=== PATIENT | male | born 1990 | race African-American/Black ===

== ENCOUNTER 2023-02-24 09:57 | Observation (INO) | payer MEDICAID, SELFPAY ==
[2023-02-24 09:58] VITALS: BP 123/81; PULSE 105; RESP 20; TEMP 36.3; O2SAT 99; BMI 34.9
--- NOTE | 2023-02-24 10:26 | EX.ED.SAOD ---
HPI History of Present Illness Chief Complaint: Substance Abuse Informant: patient Onset/Context/Timing Onset: - (Years.) Context: Gradual Onset Timing: Continuous Current Severity: Mild Maximum Severity: Mild Narrative Narrative: 32-year-old male no seen past medical history other than a history of drug abuse. States he snorts heroin and fentanyl. Denies any IV drug abuse. Denies any recent illness. Last use was early yesterday morning. Last detox was about a year ago. He denies any recent illness. Prior similar symptoms: Yes Recent Illness/Hospitalization: No PFSH PFSH Home Medications NK 02/24/23 [History Last Taken Unknown] Allergy/AdvReac Type Severity Reaction Status Date / Time No Known Allergies Allergy Verified 02/24/23 11:04 Family History adopted Surgical History (Updated 02/24/23 @ 11:02 by Madalyn Bryan) H/O wisdom tooth extraction Social History (Updated 02/24/23 @ 11:02 by Madalyn Bryan) household members: significant other housing: homeless current occupational status: unemployed Smoking Status: Never smoker ROS ROS ED ROS Narrative Denies recent illness. Review of Systems ROS Unobtainable: Denies due to encephalopathy Constitutional Constitutional ED: Denies chills or fever(s) Eyes Eyes: Denies blurry vision ENT ENT ED: Denies ear pain Cardiovascular Cardiovascular: Denies chest pain Respiratory/Chest Respiratory/Chest: Denies cough or dyspnea Gastrointestinal Gastrointestinal: Denies abdominal pain Genitourinary Genitourinary ED: Denies dysuria Musculoskeletal Musculoskeletal: Denies arthralgias Integumentary Denies abscess Neurologic Neurologic: Denies headache(s) Psychiatric Psychiatric: Denies anxiety Endocrine Endocrinology: Denies cold intolerance Hematologic/Lymphatic Hematologic/Lymphatic: Denies easy bleeding, easy bruising or lymphadenopathy Allergic/Immunologic Allergic/Immunologic ED: Denies mouth swelling, tongue swelling or urticaria EXAM Physical Exam Narrative Exam Narrative: 32-year-old male no acute distress. Vital signs stable afebrile. HEENT exam unremarkable. Moist mucous membranes. Neck nontender. No JVD. Lungs clear to auscultation bilaterally. Heart regular rhythm rate about 100 no murmur. Chest wall and ribs nontender. Abdomen soft nontender. Moving all 4 extremities. Nontender. No rashes. No track prakash. 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 Normal range of motion. Back nontender. Neurologically is awake and alert. Answering questions and following commands. He is cooperative. Const Vital Signs: 02/24/23 09:58 Temperature 97.4 F L Temperature Source Temporal Pulse Rate 105 H Respiratory Rate 20 H Blood Pressure 123/81 H Blood Pressure Mean 95 Pulse Ox 99 Oxygen Delivery Method Room Air Positive well nourished and well developed; Negative for cachectic, contractures or unkempt General Appearance ED: well developed and NAD; Negative for unkempt, cachectic, contractures or pallor Nutritional Appearance: Negative for cachectic HEENT Reports moist mucous membranes; Denies dry mucous membranes atraumatic; Negative for trauma or tenderness Mouth ED: No dry mucous membranes Mouth: No dry mucous membranes Eyes PERRL and EOMs intact bilaterally General Eye ED: Negative for pale conjunctiva or scleral icterus Neck no lymphadenopathy, supple and no JVD Thyroid: Negative for tender or other Lymph Lymphatic: no lymphadenopathy noted; Negative for lymphadenopathy or other Chest Wall inspection of chest normal Chest: Negative for other Resp normal respiratory effort and clear to auscultation bilaterally Effort and Inspection: Negative for retractions Auscultation: Negative for rales, rhonchi or wheezes Cardio regular rhythm, S1 normal heart sound, S2 normal heart sound and no murmurs Rate: Negative for bradycardia or tachycardic Rhythm: Negative for abnormal rhythm Bruits: Negative for other GI soft to palpation, non-tender, non-distended and no masses Inspection: Negative for abdominal distention Palpation: Negative for tender or guarding Back/Spine no CVA tenderness General Back: Negative for CVA tenderness Cervical Spine: Negative for cervical spine tenderness Thoracic Spine / Upper Back: Negative for thoracic spinal tenderness Lumbar Spine / Lower Back: Negative for lumbar spinal tenderness Coccyx: Negative for swelling Extremity Extremity Narrative: Nontender. No edema. No track prakash. General Extremety ED: Negative for edema or tenderness General Extremity: Negative for edema Neuro oriented x3 and CN's II-XII intact bilaterally Sensorium / Orientation: alert, oriented to person, oriented to place and oriented to time; Negative for confused, lethargic or stuporous Speech: speech normal Motor Exam: strength 5/5 throughout Psych mental status grossly normal and thought process normal Appearance: Negative for unkempt Skin General Skin Exam: Negative for jaundice or pallor Lesions: no lesions Rashes: no rashes Trauma: Negative for abrasion or laceration MDM MDM MDM Narrative Medical decision making narrative: [id number] male. History of drug abuse for years. Requesting detox. Exam is benign. He is medically cleared. Hospitalist on page for admission. Screening labs being obtained. History & Record Review Discussion w/independent historian: Patient Additional record(s) reviewed:: Prior inpatient record, Prior outpatient record, Prior ED visit and Prior labs Lab Data Attestation: I reviewed the patient's lab results. Lab results narrative: CBC normal. White count of 6. H&H 16 and 47. Platelets 366. Labs: Laboratory Results - last 24 hr 02/24/23 02/24/23 10:42 10:45 WBC 6.8 RBC 5.48 Hgb 16.0 Hct 47.7 MCV 87.0 MCH 29.2 MCHC 33.5 RDW Std Deviation 39.5 RDW Coeff of Walker 12.3 Plt Count 366 MPV 10.0 Immature Gran % (Auto) 0.300 Neut % (Auto) 66.6 Lymph % (Auto) 26.7 [place] % (Auto) 4.7 Eos % (Auto) 1.0 Baso % (Auto) 0.7 Absolute Neuts (auto) 4.5 Absolute Lymphs (auto) 1.80 Nucleated RBC % 0 Ur Drug Screen Comment Discharge Plan Dx/Rx/DC Orders Clinical Impression: Admitted to substance misuse detoxification center, Opioid abuse Disposition Disposition: Acute Care Hospital [facility]
--- NOTE | 2023-02-24 10:36 | NURSING ---
DR MCKENZIE TELLEZ
[2023-02-24 11:03] LABS: Absolute Neutrophil Count 4.5 X10^3/uL (2.0-7.7); Basophil# 0.05 X10^3/uL; Basophil% 0.7 % (0-1); Eosinophil# 0.07 X10^3/uL; Hematocrit 47.7 % (40-54); Lymphocyte % 26.7 % (19-41); Mean Corp Hgb Conc 33.5 g/dL (32-36); Mean Corpuscular Hgb 29.2 pg (27.0-32.0); Monocyte# 0.32 X10^3/uL; Monocyte% 4.7 % (0-10); NRBC Flagged by Analyzer 0 % (0-5); Neutrophil # 4.49 X10^3/uL (2.7-7.7); Neutrophil % 66.6 % (47-70); Platelet Count 366 K/mm3 (150-450); RBC Distribution Width CV 12.3 % (11.6-14.6); RBC Distribution Width SD 39.5 fl (35.1-43.9); Red Blood Count 5.48 M/mm3 (4.6-6.2); White Blood Count 6.8 K/mm3 (4.4-11.0)
[2023-02-24 11:14] LABS: ALB/GLOB Ratio 0.9 RATIO (0.9-2.4); AST(SGOT) 26 U/L (15-37); Alanine Aminotransfer ALT/SGPT 32 U/L (16-61); Albumin, Serum 3.8 g/dL (3.2-5.0); Alkaline Phosphatase 100 U/L (45-117); Anion Gap 6 (5-15); BUN 8 mg/dL (7-18); BUN/Creat Ratio 7.8 RATIO (10-20); Chloride 104 mmol/L (98-107); Creatinine, Serum 1.02 mg/dL (0.70-1.30); EST Glomerular Filtration Rate 90 mL/min (>60); Est Glom Filt Rate - Afr Amer 109 mL/min (>60); Estimated Creatinine Clearance 115.17 ml/min; Globulin 4.4 g/dL (2.2-4.2); Glucose 119 mg/dL (74-106); Potassium 3.7 mmol/L (3.5-5.1); Protein, Total 8.2 g/dL (6.4-8.2); Sodium Level 137 mmol/L (136-145)
--- NOTE | 2023-02-24 11:24 | NURSING ---
MED SURG [facility] DRUG ABUSE, DETOX
[2023-02-24 11:25] LABS: Alcohol, Blood (Medical)-Serum < 3.0 mg/dL
[2023-02-24 11:51] LABS: Amphetamine Urine VISTA NEGATIVE (<1000 ng/mL); Barbiturate Urine VISTA NEGATIVE (< 200 ng/mL); Benzodiazepine Urine VISTA NEGATIVE (< 200 ng/mL); Cocaine Urine VISTA NEGATIVE (< 300 ng/mL); Ecstacy Urine VISTA NEGATIVE (< 500 ng/mL); Methadone Urine VISTA NEGATIVE (< 300 ng/mL); PCP Urine VISTA NEGATIVE (< 25 ng/mL); THC Urine VISTA POSITIVE (< 50 ng/mL); Vista UDS pH Range 7
[2023-02-24 11:57] VITALS: PULSE 90; RESP 14; O2SAT 98
[2023-02-24 12:16] VITALS: BMI 34.0
[2023-02-24 12:21] VITALS: BP 126/70; PULSE 67; RESP 18; TEMP 36.8; O2SAT 97
--- NOTE | 2023-02-24 12:40 | PCM.HP.STD ---
HPI - General General Date of Admission: 02/24/23 Date of Service: 02/24/23 Chief Complaint: Desire for opiate detoxification HPI Narrative TEODORO LEIVA, is a 32 M who presents to the ER at [facility] requesting services for opiate detox, patient uses fentanyl and heroin, he snorts it, he never injects it, he does not admit to using any other drugs. Patient does not drink alcohol. Patient's last use of opiates was yesterday. Patient relates to no anxiety, muscle pain, or nausea and vomiting. Patient's tox screen was positive for cannabinoids. Patient's CBC and CHEM panel was unremarkable. Patient will be admitted to [place] [id number], orders were entered using the opiate detox order set, patient will be seen by addiction vp digital marketing social media and crm. [facility] Medical History (Updated 02/24/23 @ 12:44 by Anju Simons) Substance abuse Home Medications NK 02/24/23 [History Last Taken Unknown] Allergy/AdvReac Type Severity Reaction Status Date / Time No Known Allergies Allergy Verified 02/24/23 11:04 Family History adopted Surgical History (Updated 02/24/23 @ 11:02 by Madalyn Bryan) H/O wisdom tooth extraction Social History (Updated 02/24/23 @ 11:02 by Madalyn Bryan) household members: significant other housing: homeless current occupational status: unemployed Smoking Status: Never smoker ROS Constitutional Constitutional: Denies anorexia, change in weight, chills, fatigue, fever(s), malaise, night sweats or weakness Eyes Eyes: Denies blurry vision, change in vision, discharge from eye(s) or eye pain Cardiovascular Cardiovascular: Denies chest pain, claudication, edema or palpitations Respiratory/Chest Respiratory/Chest: Denies cough, hemoptysis, shortness of breath at rest or shortness of breath with exertion Gastrointestinal Gastrointestinal: Denies abdominal pain, constipation, diarrhea, hematemesis, hematochezia, melena, nausea or vomiting Genitourinary Genitourinary: Denies dysuria, hematuria, urinary frequency, urinary hesitancy, urinary incontinence or urinary urgency Musculoskeletal Musculoskeletal: Denies back pain, joint pain, joint stiffness, joint swelling, myalgias or neck pain Neurologic Neurologic: Denies abnormal gait, abnormal speech, confusion, disequilibrium, dizziness, focal weakness, headache(s), loss of vision, numbness, other visual disturbances, paresthesias, syncope or tingling Psychiatric Psychiatric: Denies anxiety, cognitive impairment, depression, irritability, mood swings or suicidal ideation Endocrine Endocrinology: Denies change in body appearance, cold intolerance, excessive sweating, heat intolerance, polydipsia or polyuria Hematologic/Lymphatic Hematologic/Lymphatic: Denies none, anemia, easy bleeding, easy bruising or lymphadenopathy Allergic/Immunologic Allergic/Immunologic: Denies rhinitis, urticaria, eczemia or asthma Vital Signs Vital Signs Vital Signs: 02/24/23 09:58 02/24/23 11:57 02/24/23 12:21 Temperature 97.4 F L 98.3 F Temperature Source Temporal Oral Pulse Rate 105 H 90 67 Respiratory Rate 20 H 14 18 Blood Pressure 123/81 H 126/70 H Blood Pressure Mean 95 88 Blood Pressure Source Monitor Blood Pressure Position Semi-Fowlers Blood Pressure Location Right Arm Pulse Ox 99 98 97 Oxygen Delivery Method Room Air Room Air Weight Weight: 113.8 kg Body Mass Index (BMI) 34.0 Physical Exam Const alert, oriented x3, no apparent distress, average body habitus and healthy appearing General Appearance: cooperative, well kempt and well developed Orientation / Consciousness: awake, oriented to person, oriented to place and oriented to time HEENT normocephalic, head/scalp atraumatic, hearing grossly normal bilaterally and moist oral mucous membranes Eyes PERRL, EOMs intact bilaterally and conjunctivae normal Neck supple, no JVD, thyroid normal and no carotid bruits General: trachea midline Resp normal respiratory effort, no retractions, no use of accessory muscles and clear to auscultation bilaterally Auscultation: Negative for rales, rhonchi or wheezes Cardio regular rate, regular rhythm, S1 normal heart sound, S2 normal heart sound, no murmurs, no rub and no gallops GI normal to inspection, nondistended, normoactive bowel sounds, soft to palpation, non-tender and non-distended Extremity no clubbing, cyanosis or edema Skin no rashes or lesions noted General Skin Exam: no breakdown Neuro oriented x3, CN's II-XII intact bilaterally, moves all extremities, no focal motor deficits and no sensory deficits noted Sensorium / Orientation: awake, alert, oriented to person, oriented to place and oriented to time Speech: speech normal Psych affect normal Results Lab / Micro Data 02/24/23 10:42 02/24/23 10:42 Labs: Laboratory Results - last 24 hr 02/24/23 10:42: WBC 6.8, RBC 5.48, Hgb 16.0, Hct 47.7, MCV 87.0, MCH 29.2, MCHC 33.5, RDW Std Deviation 39.5, RDW Coeff of Walker 12.3, Plt Count 366, MPV 10.0, Immature Gran % (Auto) 0.300, Neut % (Auto) 66.6, Lymph % (Auto) 26.7, [place] % (Auto) 4.7, Eos % (Auto) 1.0, Baso % (Auto) 0.7, Absolute Neuts (auto) 4.5, Absolute Lymphs (auto) 1.80, Nucleated RBC % 0, Sodium 137, Potassium 3.7, Chloride 104, Carbon Dioxide 27.0, Anion Gap 6, BUN 8, Creatinine 1.02, Estim Creat Clear Calc 115.17, Est GFR (MDRD) Af Amer 109, Est GFR (MDRD) Non-Af 90, BUN/Creatinine Ratio 7.8 L, Glucose 119 H, Calcium 9.0, Total Bilirubin 0.40, AST 26, ALT 32, Alkaline Phosphatase 100, Total Protein 8.2, Albumin 3.8, Globulin 4.4 H, Albumin/Globulin Ratio 0.9, Ethyl Alcohol < 3.0 02/24/23 10:45: Urine Opiates Screen NEGATIVE, Urine Methadone Screen NEGATIVE, Ur Barbiturates Screen NEGATIVE, Ur Phencyclidine Scrn NEGATIVE, Ur Amphetamines Screen NEGATIVE, MDMA (Ecstasy) Screen NEGATIVE, U Benzodiazepines Scrn NEGATIVE, Urine Cocaine Screen NEGATIVE, U Cannabinoids Screen POSITIVE H, Ur Drug Screen Comment Assessment & Plan Assessment/Plan (1) Admitted to substance misuse detoxification center: PLAN: Plan 1. Impending opiate withdrawal-patient will be admitted to [facility] 3, orders were entered using the opiate detox order set, he will be seen by addiction vp digital marketing social media and crm. #2 chronic illicit narcotic usage-complicates care, medical course, recovery, and prognosis Total clinical time spent by myself addressing the patient's medical issues, reviewing all of his data, and collaborating with patient's care team: 55 minutes Charges/Coding Visit Charges Inpatient E&M: 84562 Init Hosp L2
[2023-02-24] MEDS: Buprenorphine HCl 2 MG TAB.SUBL 4 MG SL ×2 (15:59→22:07)
[2023-02-24] MEDS: hydrOXYzine PAM 25 MG Capsule 50 MG PO (18:34)
[2023-02-24] MEDS: Dicyclomine 10 MG Capsule 20 MG PO (18:34)
[2023-02-24] MEDS: Ibuprofen 600 MG Tablet PO (18:34)
[2023-02-24 22:00] VITALS: BP 121/80; PULSE 75; RESP 16; TEMP 36.9; O2SAT 99
[2023-02-24] MEDS: traZODone 100 MG Tablet PO (22:07)
[2023-02-25 00:08] VITALS: BP 114/73; PULSE 44; RESP 18; TEMP 36.4; O2SAT 100
--- NOTE | 2023-02-25 00:20 | PCA ---
i myself was sitting at the nurses station across the [address] from pt room, i heard 3 loud bangs and went into pt room found pt on the floor in the bathroom, nurse came in to asses
--- NOTE | 2023-02-25 01:07 | PCM.HOSP.N ---
Hospitalist Note Notified by nursing that the patient fell and hit his head. I went to evaluate the patient and inquired about the fall. He states that he hit his head but does not really wear. States that he just felt unsteady and then bumped his head on the wall. He denies falling and hitting his head on the floor. States that he feels fine and does not want any additional workup. I told him could be something more severe such as a brain bleed. He expressed understanding but does not want any additional testing. Per the patient's description it seems like this may be more of a minor injury. Patient is coherent enough to understand the risks and if this were something more serious but it seems unlikely that that is the case.
[2023-02-25 01:12] VITALS: BP 113/73; PULSE 62; RESP 18; TEMP 36.6; O2SAT 100
[2023-02-25 06:41] VITALS: BP 119/57; PULSE 57; RESP 16; TEMP 37.1; O2SAT 96
--- NOTE | 2023-02-25 07:49 | PCM.HOSP.N ---
Hospitalist Note Patient has elected to leave AGAINST MEDICAL ADVICE.
--- NOTE | 2023-02-25 08:04 | NURSING ---
[facility] TO [facility]- PAPER SIGNED AND DR SINGER NOTIFIED-
--- NOTE | 2023-02-25 08:09 | NURSING ---
pt left at 0803
== END 2023-02-25 08:03 | disposition left against medical advice (07) ==
LOC: ED 10:53 → MS3 11:47
PROVIDERS: Admitting Provider Internal Medicine; Emergency Provider Emergency Medicine; Visit Provider Internal Medicine
DX: F11.13 Opioid abuse with withdrawal (principal); Z59.00 Homelessness unspecified; Z53.29 Procedure and treatment not carried out because of patient's decision for other reasons
CPT/HCPCS: 80053; 80307; 82077; 85025; 99221; 99284; A4216; G0378

== ENCOUNTER 2023-08-03 12:06 | Inpatient (IN) | payer MEDICAID, SELFPAY ==
[2023-08-03 12:07] VITALS: BP 127/83; PULSE 72; RESP 19; TEMP 36.4; O2SAT 98; BMI 31.3
[2023-08-03 13:10] LABS: Absolute Lymphocyte Count 1.35 X10^3/uL (0.83-4.51); Absolute Neutrophil Count 6.6 X10^3/uL (2.0-7.7); Basophil# 0.07 X10^3/uL; Basophil% 0.8 % (0-1); Eosinophil# 0.02 X10^3/uL; Eosinophils% 0.2 % (0-5); Hematocrit 44.5 % (40-54); Hemoglobin 15.1 g/dL (13.0-16.5); Lymphocyte # 1.35 X10^3/ul (0.83-4.51); Mean Corp Hgb Conc 33.9 g/dL (32-36); Mean Corpuscular Hgb 29.4 pg (27.0-32.0); Mean Corpuscular Volume 86.6 fL (80-94); Mean Platelet Vol. 9.7 fl (6.2-12.0); Monocyte# 0.34 X10^3/uL; NRBC Flagged by Analyzer 0 % (0-5); Neutrophil # 6.63 X10^3/uL (2.7-7.7); Neutrophil % 78.5 % (47-70); Platelet Count 344 K/mm3 (150-450); RBC Distribution Width CV 12.5 % (11.6-14.6); RBC Distribution Width SD 39.6 fl (35.1-43.9); Red Blood Count 5.14 M/mm3 (4.6-6.2); White Blood Count 8.5 K/mm3 (4.4-11.0)
[2023-08-03 13:20] LABS: Amphetamine Urine VISTA POSITIVE (<1000 ng/mL); Barbiturate Urine VISTA NEGATIVE (< 200 ng/mL); Benzodiazepine Urine VISTA NEGATIVE (< 200 ng/mL); Cocaine Urine VISTA NEGATIVE (< 300 ng/mL); Ecstacy Urine VISTA NEGATIVE (< 500 ng/mL); Methadone Urine VISTA NEGATIVE (< 300 ng/mL); PCP Urine VISTA NEGATIVE (< 25 ng/mL); THC Urine VISTA POSITIVE (< 50 ng/mL); Vista UDS pH Range 5
[2023-08-03 13:24] LABS: Anion Gap 7 (5-15); BUN 5 mg/dL (7-18); BUN/Creat Ratio 5.4 RATIO (10-20); Calcium,Total 9.1 mg/dL (8.5-10.1); Chloride 107 mmol/L (98-107); Creatinine, Serum 0.92 mg/dL (0.70-1.30); EST Glomerular Filtration Rate 101 mL/min (>60); Est Glom Filt Rate - Afr Amer 122 mL/min (>60); Estimated Creatinine Clearance 144.31 ml/min; Glucose 115 mg/dL (74-106); Potassium 3.5 mmol/L (3.5-5.1); Sodium Level 139 mmol/L (136-145)
[2023-08-03 13:25] LABS: Alcohol, Blood (Medical)-Serum < 3.0 mg/dL
--- NOTE | 2023-08-03 13:58 | EDS_ITS ---
HPI History of Present Illness Chief Complaint: Substance Abuse Narrative Narrative: 33-year-old male presenting for opioid detox. He states he uses fentanyl. He only snorts it. He does not inject. He states he has used other drugs but he is not addicted to them. He states he feels like he is withdrawing. Last use was Tuesday. [facility] Medical History Substance abuse Home Medications NK 02/24/23 [History Last Taken Unknown] Allergy/AdvReac Type Severity Reaction Status Date / Time No Known Allergies Allergy Verified 02/24/23 11:04 Surgical History H/O wisdom tooth extraction Social History household members: significant other housing: homeless current occupational status: unemployed Smoking Status: Never smoker ROS ROS ED Constitutional Constitutional ED: Denies chills, fever(s) or sweats Eyes Eyes: Denies blurry vision or change in vision ENT ENT ED: Denies ear pain or sore throat Cardiovascular Cardiovascular: Denies chest pain, palpitations or racing heartbeat Respiratory/Chest Respiratory/Chest: Denies cough, dyspnea or sputum Gastrointestinal Gastrointestinal: Denies abdominal pain, constipation, diarrhea, nausea or vomiting Genitourinary Genitourinary ED: Denies dysuria, hematuria or urinary frequency Musculoskeletal Musculoskeletal: Denies arthralgias, myalgias or neck pain Integumentary Denies abscess, Abrasions or rash Neurologic Neurologic: Denies headache(s), paresthesias or weakness Psychiatric Psychiatric: Denies anxiety, depression, suicidal ideation or suicidal thoughts Endocrine Endocrinology: Denies polydipsia or polyuria EXAM Physical Exam Const Vital Signs: 08/03/23 12:07 08/03/23 14:06 Temperature 97.6 F L Temperature Source Temporal Pulse Rate 72 78 Respiratory Rate 19 H 16 Blood Pressure 127/83 H 138/76 H Blood Pressure Mean 97 96 Pulse Ox 98 98 Oxygen Delivery Method Room Air Room Air Positive well nourished General Appearance ED: NAD; Negative for pallor HEENT Reports moist mucous membranes atraumatic and trauma Eyes PERRL and EOMs intact bilaterally Resp normal respiratory effort Cardio regular rate and regular rhythm Neuro oriented x3 and CN's II-XII intact bilaterally Sensorium / Orientation: alert Skin General Skin Exam: Negative for jaundice or pallor MDM MDM MDM Narrative Medical decision making narrative: Patient presenting for opioid detox. Appropriate screening lab work was obtained and is within normal. Drug screen positive for cannabinoids and amphetamines. EtOH negative. Will discuss with hospitalist for admission. Impression: 1. Opioid abuse 2. Presentation for opioid detox 3. Amphetamine abuse Lab Data Attestation: I reviewed the patient's lab results. Labs: Laboratory Results - last 24 hr 08/03/23 08/03/23 12:50 13:00 WBC 8.5 RBC 5.14 Hgb 15.1 Hct 44.5 MCV 86.6 MCH 29.4 MCHC 33.9 RDW Std Deviation 39.6 RDW Coeff of Walker 12.5 Plt Count 344 MPV 9.7 Immature Gran % (Auto) 0.500 Neut % (Auto) 78.5 H Lymph % (Auto) 16.0 L [place] % (Auto) 4.0 Eos % (Auto) 0.2 Baso % (Auto) 0.8 Absolute Neuts (auto) 6.6 Absolute Lymphs (auto) 1.35 Nucleated RBC % 0 Sodium 139 Potassium 3.5 Chloride 107 Carbon Dioxide 25.0 Anion Gap 7 BUN 5 L Creatinine 0.92 Estim Creat Clear Calc 144.31 Est GFR (MDRD) Af Amer 122 Est GFR (MDRD) Non-Af 101 BUN/Creatinine Ratio 5.4 L Glucose 115 H Calcium 9.1 Urine Opiates Screen NEGATIVE Urine Methadone Screen NEGATIVE Ur Barbiturates Screen NEGATIVE Ur Phencyclidine Scrn NEGATIVE Ur Amphetamines Screen POSITIVE H MDMA (Ecstasy) Screen NEGATIVE U Benzodiazepines Scrn NEGATIVE Urine Cocaine Screen NEGATIVE U Cannabinoids Screen POSITIVE H Ur Drug Screen Comment Ethyl Alcohol < 3.0 Discharge Plan Triage Chief Complaint: Substance Abuse ED Provider: Mayo Lowry Dx/Rx/DC Orders Prescriptions: No Action NK Primary Care Provider: Care Physician,No Primary Referrals: Care Physician,No Primary [Primary Care Provider] -
--- NOTE | 2023-08-03 14:00 | PCM.HP.STD ---
HPI - General General Date of Admission: 08/03/23 Date of Service: 08/03/23 Chief Complaint: opioid detox HPI Narrative TEODORO LEIVA, is a 33 M with a PMH as outlined who presents via the ED on 08/03/2023 with a complaint of acute opioid withdrawal. He uses heroin and fentanyl and says he usually only snorts it, but doesnt not inject or smoke. His last use was 3 days before admission. He admitted to abdominal cramps, increased sweating and chills. Review of systems was otherwise negative. He was last admitted for acute opioid withdrawal in February 2023. Vitals in the ED were BP of 127/83, NV of 72, RR of 19 and temp of 97.6F. CBC and BMP were largely unremarkable. urine tox was positive for amphetamines and cannabinoids. He is being admitted to be managed for acute opioid withdrawal. [facility] Medical History Substance abuse Home Medications NK 02/24/23 [History Last Taken Unknown] Allergy/AdvReac Type Severity Reaction Status Date / Time No Known Allergies Allergy Verified 02/24/23 11:04 Surgical History H/O wisdom tooth extraction Social History household members: significant other housing: homeless current occupational status: unemployed Smoking Status: Never smoker ROS Constitutional Constitutional: Reports fatigue, malaise and weakness; Denies anorexia, chills or fever(s) Eyes Eyes: Denies change in vision ENT HEENT: Denies dysphagia or sore throat Cardiovascular Cardiovascular: Denies chest pain, edema, orthopnea, palpitations or paroxysmal nocturnal dyspnea Respiratory/Chest Respiratory/Chest: Denies cough, shortness of breath at rest or shortness of breath with exertion Gastrointestinal Gastrointestinal: Denies abdominal pain, constipation, nausea or vomiting Genitourinary Genitourinary: Denies dysuria Musculoskeletal Musculoskeletal: Denies back pain or muscle weakness Neurologic Neurologic: Denies confusion, dizziness, focal weakness or headache(s) Psychiatric Psychiatric: Denies anxiety Vital Signs Vital Signs Vital Signs: 08/03/23 12:07 Temperature 97.6 F L Temperature Source Temporal Pulse Rate 72 Respiratory Rate 19 H Blood Pressure 127/83 H Blood Pressure Mean 97 Pulse Ox 98 Oxygen Delivery Method Room Air Weight Weight: 231 lb 3.2 oz Body Mass Index (BMI) 31.3 Physical Exam Const alert, oriented x3 and no apparent distress General Appearance: cooperative and well developed HEENT normocephalic, head/scalp atraumatic and moist oral mucous membranes Eyes PERRL and EOMs intact bilaterally Neck no lymphadenopathy, supple and no JVD Lymph Lymphatic: no lymphadenopathy noted and no lymphedema noted Resp normal respiratory effort, normal air movement and clear to auscultation bilaterally Cardio regular rate, regular rhythm, S1 normal heart sound, S2 normal heart sound and no murmurs GI normal to inspection, nondistended, normoactive bowel sounds, soft to palpation, non-tender and non-distended Extremity normal capillary refill, no clubbing, cyanosis or edema and no calf tenderness General Extremity: no tenderness to palpation of joints or extremities Skin General Skin Exam: no breakdown Neuro CN's II-XII intact bilaterally, no focal motor deficits, no sensory deficits noted and deep tendon reflexes 2+ bilaterally Motor Exam: strength 5/5 throughout and general weakness Psych thought process normal, cooperative and affect normal Appearance: appropriate Results Lab / Micro Data 08/03/23 13:00 08/03/23 13:00 Labs: Laboratory Results - last 24 hr 08/03/23 12:50: Urine Opiates Screen NEGATIVE, Urine Methadone Screen NEGATIVE, Ur Barbiturates Screen NEGATIVE, Ur Phencyclidine Scrn NEGATIVE, Ur Amphetamines Screen POSITIVE H, MDMA (Ecstasy) Screen NEGATIVE, U Benzodiazepines Scrn NEGATIVE, Urine Cocaine Screen NEGATIVE, U Cannabinoids Screen POSITIVE H, Ur Drug Screen Comment 08/03/23 13:00: WBC 8.5, RBC 5.14, Hgb 15.1, Hct 44.5, MCV 86.6, MCH 29.4, MCHC 33.9, RDW Std Deviation 39.6, RDW Coeff of Walker 12.5, Plt Count 344, MPV 9.7, Immature Gran % (Auto) 0.500, Neut % (Auto) 78.5 H, Lymph % (Auto) 16.0 L, [place] % (Auto) 4.0, Eos % (Auto) 0.2, Baso % (Auto) 0.8, Absolute Neuts (auto) 6.6, Absolute Lymphs (auto) 1.35, Nucleated RBC % 0, Sodium 139, Potassium 3.5, Chloride 107, Carbon Dioxide 25.0, Anion Gap 7, BUN 5 L, Creatinine 0.92, Estim Creat Clear Calc 144.31, Est GFR (MDRD) Af Amer 122, Est GFR (MDRD) Non-Af 101, BUN/Creatinine Ratio 5.4 L, Glucose 115 H, Calcium 9.1, Ethyl Alcohol < 3.0 Assessment & Plan Assessment/Plan (1) Opioid abuse: PLAN: Plan #Acute opioid withdrawal Admit to [facility]. Patient is currently on fentanyl usually snorts but is not smoking or injected. Also uses other drugs like marijuana but says he is not addicted to these drugs. Started on opioid withdrawal protocol with buprenorphine. Adjunctive meds for symptomatic relief. Monitor CIWA score. #Polysubstance abuse: In addition to opioids he also uses amphetamines and marijuana. His urine tox was positive for amphetamines and cannabinoids. Counseled to quit. #DVT prophylaxis: Low risk. Encourage ambulation. Charges/Coding Visit Charges Inpatient E&M: 49043 Init Hosp L3
[2023-08-03 14:06] VITALS: BP 138/76; PULSE 78; RESP 16; O2SAT 98
[2023-08-03 15:37] VITALS: BMI 31.8
[2023-08-03] MEDS: Methocarbamol 750 MG Tablet PO ×2 (15:44→22:09)
[2023-08-03] MEDS: Gabapentin 300 MG Capsule PO (15:44)
[2023-08-03] MEDS: Buprenorphine HCl 2 MG TAB.SUBL SL ×2 (15:44→23:09)
[2023-08-03] MEDS: hydrOXYzine PAM 25 MG Capsule 50 MG PO (17:33)
[2023-08-03] MEDS: cloNIDine HCl 0.1 MG Tablet PO (22:09)
[2023-08-03 22:10] VITALS: BP 132/91; PULSE 68; RESP 17; TEMP 36.5; O2SAT 100
[2023-08-03] MEDS: traZODone 100 MG Tablet PO (23:09)
[2023-08-04 02:00] VITALS: BP 121/68; PULSE 60; RESP 16; TEMP 36.6; O2SAT 99
[2023-08-04] MEDS: hydrOXYzine PAM 25 MG Capsule 50 MG PO ×2 (06:40→15:43)
[2023-08-04] MEDS: Gabapentin 300 MG Capsule PO (06:40)
[2023-08-04] MEDS: Buprenorphine HCl 2 MG TAB.SUBL SL ×3 (06:57→23:22)
[2023-08-04 09:00] VITALS: BP 107/53; PULSE 91; RESP 18; TEMP 36.6; O2SAT 98
--- NOTE | 2023-08-04 11:00 | ADDICTION ---
Met with pt to complete RAMP assessments. Pt reports that he came to detox because he was in active w/draw but is unsure that he wants to completely quit using fentanyl. He reports that it helps him sleep. He reports that he wants to be able to do it occasionally once he detoxes from it. Clinician discussed his risk for relapse and other options for better sleep. Pt reported he was unsure of those options. Clinician gave client a list of resources in case he changes his mind.
[2023-08-04] MEDS: cloNIDine HCl 0.1 MG Tablet PO (12:34)
--- NOTE | 2023-08-04 14:55 | PN.HOSP_ITS ---
Reason for Visit Reason for Visit: Diagnoses Opioid abuse, uncomplicated (08/03/23) Subjective Subjective Feeling better today. Anxious about his wallet which she left at his house. Objective Data Objective Data Vital Signs: Vital Signs Temp Pulse Resp BP Pulse Ox O2 Del Method 36.6 C 91 18 107/53 L 98 Room Air 08/04/23 09:00 08/04/23 09:00 08/04/23 09:00 08/04/23 09:00 08/04/23 09:00 08/04/23 09:00 Oxygen Delivery Method Room Air Weight: 106.7 kg Body Mass Index (BMI) 31.8 Intake & Output: Intake and Output for Last 24 Hours 08/02/23 08/03/23 08/04/23 23:59 23:59 23:59 Intake Total 1240 / 1240 Balance 1240 / 1240 Lab / Micro Data 08/03/23 13:00 08/03/23 13:00 Physical Exam Const alert and no apparent distress HEENT head/scalp atraumatic and moist oral mucous membranes Neuro no focal motor deficits Sensorium / Orientation: awake and alert Psych Mood & Affect: anxious Assessment & Plan Assessment/Plan (1) Opiate withdrawal: PLAN: Plan Acute opiate withdrawal * Patient uses fentanyl and heroin and snorts them. * On buprenorphine. Continue with. Medications to help with other somatic complaints with his withdrawal. * Discussed with addiction medicine. Plan was for the patient to go to a residential program after is completed discharge. However, the patient is expressing a desire to leave before he has completed his treatment because he has to get his wallet. I discussed with addiction medicine and they stated that his wallet is at a trap house if he did not do leave this as well if there is private been picked apart by the people that are also living there. If he does leave AGAINST MEDICAL ADVICE, he would not be able to be as easily enrolled into a residential program and would need to do so on his own. VTE prophylaxis: Low risk not indicated. Charges/Coding Visit Charges Inpatient E&M: 19332 Subs Hosp L2
[2023-08-04 14:59] VITALS: BP 118/74; PULSE 84; RESP 18; TEMP 36.8; O2SAT 99
[2023-08-04 20:00] VITALS: BP 109/66; PULSE 62; RESP 16; TEMP 36.8; O2SAT 98
[2023-08-05 06:48] VITALS: BP 113/72; PULSE 57; RESP 15; TEMP 36.6; O2SAT 98
[2023-08-05] MEDS: Buprenorphine HCl 2 MG TAB.SUBL SL (06:52)
[2023-08-05] MEDS: Gabapentin 300 MG Capsule PO (09:52)
[2023-08-05 10:01] VITALS: BP 123/88; PULSE 71; RESP 18; TEMP 36.8; O2SAT 100
--- NOTE | 2023-08-05 10:33 | NURSING ---
pt left ama
--- NOTE | 2023-08-05 13:35 | DS.PCM_ITS ---
Providers Date of Admission: 08/03/23 Primary Care Physician: Gretta Primary Care Phys Reason For Visit: ACUTE OPIOID WITHDRAWAL Diagnosis Discharge Diagnosis (1) Opiate withdrawal: Status: Acute Code(s): F11.93 - Opioid use, unspecified with withdrawal Plan Acute opiate withdrawal * Patient uses fentanyl and heroin and snorts them. * On buprenorphine. Continue with. Medications to help with other somatic complaints with his withdrawal. * Discussed with addiction medicine. Plan was for the patient to go to a residential program after is completed discharge. However, the patient is expressing a desire to leave before he has completed his treatment because he has to get his wallet. I discussed with addiction medicine and they stated that his wallet is at a trap house if he did not do leave this as well if there is private been picked apart by the people that are also living there. If he does leave AGAINST MEDICAL ADVICE, he would not be able to be as easily enrolled into a residential program and would need to do so on his own. VTE prophylaxis: Low risk not indicated. Medications at Discharge Home Medications NK 02/24/23 Hospital Course Summary of Care Provided Hospital Course: Patient left AGAINST MEDICAL ADVICE before being seen. Patient had previously been saying that he had to go get his wallet at his house. The house was house his other drug addicts. Seem like that was actually more of an excuse than actual legitimate reason. Patient was informed yesterday that if he were to leave AGAINST MEDICAL ADVICE that he would need to initiate his own services for sobriety. Weight / BMI Weight Weight: 106.7 kg Body Mass Index (BMI) 31.8 ABG / Lab / Microbiology Data 08/03/23 13:00 08/03/23 13:00 Meaningful Use Info Meaningful Use Meaningful Use Diagnoses (Choose all that apply): None applicable Ischemic Stroke Statin Dosing Therapy Reference: STATIN DOSE THERAPY REFERENCE: * Patients > 75 years receive moderate or high dose statin therapy. * Patients 75 years or YOUNGER should receive HIGH intensity statin dose unless contraindicated. You will be required to document reason for non-treatment if statin daily dose does not meet guidelines. HIGH DOSE STATIN THERAPY DAILY Atorvastatin > than or = to 40 mg Rosuvastatin > than or = to 20 mg Amlodipine + Atorvastatin > than or = to 2.5/40 mg Ezetimibe + Simvastatin 10/80 mg Simvastatin 80mg Discharge Plan Admission Admit Date/Time: 08/03/23 14:07 Attending Provider: Tian Goetz Primary Care Provider: Care Physician,No Primary Consulting Providers: Ana Beltran Discharge Orders/Prescriptions Prescriptions: No Action NK Referrals / Follow Up: Care Physician,No Primary [Primary Care Provider] - Disposition Disposition (needs filled in before D/C Order can be placed): Against Medical Advice
== END 2023-08-05 10:43 | disposition left against medical advice (07) | DRG 770 ==
LOC: ED 13:14 → MS3 14:40
PROVIDERS: Admitting Provider Student in an Organized Health Care Education/Training Program; Emergency Provider Student in an Organized Health Care Education/Training Program
DX: F11.23 Opioid dependence with withdrawal (principal); F15.10 Other stimulant abuse, uncomplicated; Z59.00 Homelessness unspecified
CPT/HCPCS: 80048; 80307; 80320; 85025; 99283; G0480

== ENCOUNTER 2023-09-29 05:13 | Inpatient (IN) | payer MEDICAID, SELFPAY ==
[2023-09-29] VITALS (7 sets, daily range): BP systolic 93–148; BP diastolic 52–83; PULSE 51–89; RESP 16–18; TEMP 36.4–36.8; O2SAT 96–100; BMI 31.4; BMI 30.8
--- NOTE | 2023-09-29 05:39 | EX.ED.SAOD ---
HPI History of Present Illness Chief Complaint: Substance Abuse Informant: patient Narrative Narrative: 33-year-old healthy male presenting requesting detox from opiates. He also uses methamphetamine but not as often. Opiate use is daily for years. His last use was yesterday. He is starting to feel some withdrawal symptoms including rhinorrhea, anxiety, nausea. Uses methamphetamine on average about once weekly. Denies using any IV drugs, he is snorting fentanyl for the most part. [facility] Medical History Substance abuse Opioid abuse Home Medications ?Medication ?Instructions ?Recorded ?Last Taken ?Type NK 02/24/23 Unknown History Allergy/AdvReac Type Severity Reaction Status Date / Time No Known Allergies Allergy Verified 09/29/23 05:14 Surgical History H/O wisdom tooth extraction Social History household members: significant other housing: homeless current occupational status: unemployed Smoking Status: Never smoker ROS ROS ED Constitutional Constitutional ED: Denies chills or fever(s) Eyes Eyes: Denies change in vision or diplopia ENT ENT ED: Reports rhinorrhea; Denies sore throat Cardiovascular Cardiovascular: Denies chest pain or palpitations Respiratory/Chest Respiratory/Chest: Denies cough or dyspnea Gastrointestinal Gastrointestinal: Reports nausea; Denies abdominal pain, diarrhea or vomiting Genitourinary Genitourinary ED: Denies dysuria or hematuria Musculoskeletal Musculoskeletal: Denies back pain or neck pain Integumentary Denies abscess or rash Neurologic Neurologic: Denies headache(s), paresthesias or weakness Psychiatric Psychiatric: Reports anxiety; Denies suicidal thoughts EXAM Physical Exam Const Vital Signs: 09/29/23 05:14 Temperature 98.1 F Temperature Source Temporal Pulse Rate 73 Respiratory Rate 16 Blood Pressure 132/83 H Blood Pressure Mean 99 Pulse Ox 96 Positive well nourished and well developed Constitutional Narrative: Well-appearing General Appearance ED: well developed and NAD HEENT Reports moist mucous membranes normocephalic and atraumatic Eyes PERRL and EOMs intact bilaterally Neck full ROM and supple Resp normal respiratory effort and clear to auscultation bilaterally Cardio regular rate, regular rhythm and no murmurs Rate: Negative for tachycardic GI non-tender and non-distended Auscultation: normoactive bowel sounds Palpation: soft Back/Spine no CVA tenderness General Back: other FROM Extremity normal to inspection General Extremety ED: Negative for edema, pulses abnormal or tenderness General Extremity: Negative for edema or pulses abnormal Neuro oriented x3, CN's II-XII intact bilaterally and no sensory deficits noted Sensorium / Orientation: awake and alert Motor Exam: strength 5/5 throughout Psych mental status grossly normal and thought process normal Skin no rashes or lesions noted and no wounds MDM MDM MDM Narrative Medical decision making narrative: Labs and toxicology obtained, he does not have any other acute medical or renal issues, in the meantime gave him medications for withdrawal including tramadol, hydroxyzine, clonidine, and will speak with hospitalist for admission to [facility] program. Lab Data Attestation: I reviewed the patient's lab results. Labs: Laboratory Results - last 24 hr 09/29/23 09/29/23 05:30 06:12 WBC 6.4 RBC 5.08 Hgb 14.8 Hct 45.3 MCV 89.2 MCH 29.1 MCHC 32.7 RDW Std Deviation 39.8 RDW Coeff of Walker 12.2 Plt Count 288 MPV 10.1 Immature Gran % (Auto) 0.300 Neut % (Auto) 48.6 Lymph % (Auto) 40.2 [place] % (Auto) 6.4 Eos % (Auto) 3.6 Baso % (Auto) 0.9 Absolute Neuts (auto) 3.1 Absolute Lymphs (auto) 2.57 Nucleated RBC % 0 Sodium 139 Potassium 3.5 Chloride 105 Carbon Dioxide 30.0 Anion Gap 4 L BUN 9 Creatinine 0.95 Estim Creat Clear Calc 139.81 Est GFR (MDRD) Af Amer 118 Est GFR (MDRD) Non-Af 97 BUN/Creatinine Ratio 9.5 L Glucose 113 H Calcium 8.6 Total Bilirubin 0.30 AST 22 ALT 21 Alkaline Phosphatase 81 Total Protein 7.2 Albumin 3.8 Globulin 3.4 Albumin/Globulin Ratio 1.1 Urine Opiates Screen NEGATIVE Urine Methadone Screen NEGATIVE Ur Barbiturates Screen NEGATIVE Ur Phencyclidine Scrn NEGATIVE Ur Amphetamines Screen POSITIVE H MDMA (Ecstasy) Screen POSITIVE H U Benzodiazepines Scrn NEGATIVE Urine Cocaine Screen NEGATIVE U Cannabinoids Screen POSITIVE H Ur Drug Screen Comment Discharge Plan Dx/Rx/DC Orders Clinical Impression: Opiate dependence Disposition Disposition: Acute Care Hospital [facility]
[2023-09-29] MEDS: traMADol 50 MG Tablet 100 MG PO (05:46)
[2023-09-29] MEDS: hydrOXYzine PAM 25 MG Capsule 50 MG PO ×2 (05:46→20:30)
[2023-09-29] MEDS: cloNIDine HCl 0.2 MG Tablet PO (05:47)
[2023-09-29 06:24] LABS: Absolute Lymphocyte Count 2.57 X10^3/uL (0.83-4.51); Absolute Neutrophil Count 3.1 X10^3/uL (2.0-7.7); Basophil# 0.06 X10^3/uL; Basophil% 0.9 % (0-1); Eosinophil# 0.23 X10^3/uL; Eosinophils% 3.6 % (0-5); Hematocrit 45.3 % (40-54); Hemoglobin 14.8 g/dL (13.0-16.5); Lymphocyte # 2.57 X10^3/ul (0.83-4.51); Lymphocyte % 40.2 % (19-41); Mean Corp Hgb Conc 32.7 g/dL (32-36); Mean Corpuscular Hgb 29.1 pg (27.0-32.0); Mean Corpuscular Volume 89.2 fL (80-94); Mean Platelet Vol. 10.1 fl (6.2-12.0); Monocyte# 0.41 X10^3/uL; Monocyte% 6.4 % (0-10); NRBC Flagged by Analyzer 0 % (0-5); Neutrophil % 48.6 % (47-70); Platelet Count 288 K/mm3 (150-450); RBC Distribution Width CV 12.2 % (11.6-14.6); RBC Distribution Width SD 39.8 fl (35.1-43.9); Red Blood Count 5.08 M/mm3 (4.6-6.2); White Blood Count 6.4 K/mm3 (4.4-11.0)
[2023-09-29 06:37] LABS: Amphetamine Urine VISTA POSITIVE (<1000 ng/mL); Barbiturate Urine VISTA NEGATIVE (< 200 ng/mL); Benzodiazepine Urine VISTA NEGATIVE (< 200 ng/mL); Cocaine Urine VISTA NEGATIVE (< 300 ng/mL); Ecstacy Urine VISTA POSITIVE (< 500 ng/mL); Methadone Urine VISTA NEGATIVE (< 300 ng/mL); PCP Urine VISTA NEGATIVE (< 25 ng/mL); THC Urine VISTA POSITIVE (< 50 ng/mL); Vista UDS pH Range 6
[2023-09-29 06:49] LABS: ALB/GLOB Ratio 1.1 RATIO (0.9-2.4); AST(SGOT) 22 U/L (15-37); Alanine Aminotransfer ALT/SGPT 21 U/L (16-61); Albumin, Serum 3.8 g/dL (3.2-5.0); Alkaline Phosphatase 81 U/L (45-117); Anion Gap 4 (5-15); BUN 9 mg/dL (7-18); BUN/Creat Ratio 9.5 RATIO (10-20); Calcium,Total 8.6 mg/dL (8.5-10.1); Chloride 105 mmol/L (98-107); Creatinine, Serum 0.95 mg/dL (0.70-1.30); EST Glomerular Filtration Rate 97 mL/min (>60); Est Glom Filt Rate - Afr Amer 118 mL/min (>60); Estimated Creatinine Clearance 139.81 ml/min; Globulin 3.4 g/dL (2.2-4.2); Glucose 113 mg/dL (74-106); Potassium 3.5 mmol/L (3.5-5.1); Protein, Total 7.2 g/dL (6.4-8.2); Sodium Level 139 mmol/L (136-145)
[2023-09-29 06:53] LABS: Alcohol, Blood (Medical)-Serum < 3.0 mg/dL
--- NOTE | 2023-09-29 07:22 | HP.PCM.HOS_ITS ---
HPI - General General Date of Admission: 09/29/23 Date of Service: 09/29/23 Chief Complaint: Opiate detoxification HPI Narrative TEODORO LEIVA, is a 33 M who presented emergency department at [facility] on 09/29/2019 for requesting detox from opiates. He also admitted to using methamphetamines but states this is not his drug of choice and he does not use it frequently. He uses opiates daily and his last use was the day prior to presentation. He reported he was having some rhinorrhea, anxiety, and nausea. He denied IV drug use and snorts his fentanyl. He had a recent admission here. Early July at which time he left AMA. He also was admitted in February 2023 and left AMA at that time as well. Vital signs on presentation showed temperature 98.1, heart rate 73, respirate 16, blood pressure was 132/83 and pulse ox 96% on room air. CBC is unremarkable. Chemistry panel was unremarkable. Toxicology screen was positive for methamphetamines, ecstasy, and cannabinoids. Alcohol level was less than 3. [facility] Medical History Substance abuse Opioid abuse Home Medications ?Medication ?Instructions ?Recorded ?Last Taken ?Type NK 02/24/23 Unknown History Allergy/AdvReac Type Severity Reaction Status Date / Time No Known Allergies Allergy Verified 09/29/23 05:14 no significant family history Surgical History H/O wisdom tooth extraction Social History (Updated 09/29/23 @ 07:[address] Corry Carrasquillo DO) housing: homeless current occupational status: unemployed Smoking Status: Never smoker alcohol intake: never substance use type: marijuana, amphetamines and opiates ROS Constitutional Constitutional: Reports chills and malaise; Denies anorexia, change in weight, fatigue, fever(s), night sweats, weakness or other Eyes Eyes: Denies blurry vision, change in eye color, change in vision, discharge from eye(s), double vision, erythema, eye pain, loss of vision or other ENT HEENT: Denies abnormal hearing, dysphagia, ear pain, epistaxis, headache(s), hearing loss, nasal congestion, nasal discharge, post nasal drip, sinus pressure, sore throat or other Cardiovascular Cardiovascular: Denies chest pain, claudication, dyspnea on exertion, edema, lightheadedness, orthopnea, palpitations, paroxysmal nocturnal dyspnea, rapid heart rate, syncope or other Respiratory/Chest Respiratory/Chest: Denies cough, dyspnea, excessive phlegm production, hemoptysis, productive cough, shortness of breath at rest, shortness of breath with exertion, wheezing or other Gastrointestinal Gastrointestinal: Reports nausea; Denies abdominal pain, coffee ground emesis, constipation, diarrhea, dyspepsia, hematemesis, hematochezia, loose stools, melena, vomiting or other Genitourinary Genitourinary: Denies burning urination, difficulty urinating, dysuria, hematuria, nocturia, urinary frequency, urinary hesitancy, urinary incontinence, urinary urgency or other Musculoskeletal Musculoskeletal: Reports myalgias; Denies arthralgias, back pain, joint pain, joint stiffness, joint swelling, neck pain or other Neurologic Neurologic: Denies abnormal gait, abnormal speech, confusion, disequilibrium, dizziness, focal weakness, headache(s), numbness, paresthesias, seizure-like activity, seizures, syncope, tingling, tremor(s) or other Psychiatric Psychiatric: Denies anxiety, depression, homicidal ideation, suicidal ideation or other Endocrine Endocrinology: Denies change in body appearance, cold intolerance, excessive sweating, heat intolerance, polydipsia, polyuria or other Hematologic/Lymphatic Hematologic/Lymphatic: Denies anemia, easy bleeding, easy bruising, lymphadenopathy or other Allergic/Immunologic Allergic/Immunologic: Denies rhinitis, hives, eczemia, asthma or other Vital Signs Vital Signs Vital Signs: 09/29/23 05:14 09/29/23 07:02 Temperature 98.1 F 97.8 F Temperature Source Temporal Pulse Rate 73 89 Respiratory Rate 16 16 Blood Pressure 132/83 H 148/74 H Blood Pressure Mean 99 98 Pulse Ox 96 98 Weight Weight: 104.961 kg Body Mass Index (BMI) 31.4 Results Lab / Micro Data 09/29/23 05:30 09/29/23 05:30 Labs: Laboratory Results - last 24 hr 09/29/23 05:30: WBC 6.4, RBC 5.08, Hgb 14.8, Hct 45.3, MCV 89.2, MCH 29.1, MCHC 32.7, RDW Std Deviation 39.8, RDW Coeff of Walker 12.2, Plt Count 288, MPV 10.1, Immature Gran % (Auto) 0.300, Neut % (Auto) 48.6, Lymph % (Auto) 40.2, [place] % (Auto) 6.4, Eos % (Auto) 3.6, Baso % (Auto) 0.9, Absolute Neuts (auto) 3.1, Absolute Lymphs (auto) 2.57, Nucleated RBC % 0, Sodium 139, Potassium 3.5, Chloride 105, Carbon Dioxide 30.0, Anion Gap 4 L, BUN 9, Creatinine 0.95, Estim Creat Clear Calc 139.81, Est GFR (MDRD) Af Amer 118, Est GFR (MDRD) Non-Af 97, B UN/Creatinine Ratio 9.5 L, Glucose 113 H, Calcium 8.6, Total Bilirubin 0.30, AST 22, ALT 21, Alkaline Phosphatase 81, Total Protein 7.2, Albumin 3.8, Globulin 3.4, Albumin/Globulin Ratio 1.1, Ethyl Alcohol < 3.0 09/29/23 06:12: Urine Opiates Screen NEGATIVE, Urine Methadone Screen NEGATIVE, Ur Barbiturates Screen NEGATIVE, Ur Phencyclidine Scrn NEGATIVE, Ur Amphetamines Screen POSITIVE H, MDMA (Ecstasy) Screen POSITIVE H, U Benzodiazepines Scrn NEGATIVE, Urine Cocaine Screen NEGATIVE, U Cannabinoids Screen POSITIVE H, Ur Drug Screen Comment Assessment & Plan Assessment/Plan (1) Opiate dependence: (2) Opiate withdrawal: (3) Admitted to substance misuse detoxification center: (4) Homelessness: PLAN: Plan Acute opiate withdrawal with chronic opiate dependence -Has been using for about 2 years now -Never uses IV and typically snorts fentanyl -Last use was yesterday and patient having rhinorrhea, myalgias, and nausea -Start buprenorphine taper per [facility] protocol -Supportive medications for withdrawal symptoms -180 consultation Polysubstance abuse -Patient also admits to cannabis and methamphetamine use -Recommend cessation -180 consultation Homelessness -Complicates the above -Case management/social work consultation for assistance Obesity -BMI 31.4 -complicates treatment, prognosis, outcomes DVT prophylaxis -Low risk -Encourage early and frequent ambulation CODE STATUS Full code Charges/Coding Visit Charges Inpatient E&M: 20765 Init Hosp L2
[2023-09-29] MEDS: Gabapentin 300 MG Capsule PO (15:35)
[2023-09-29] MEDS: traZODone 100 MG Tablet PO (20:29)
[2023-09-30 02:30] VITALS: BP 110/57; PULSE 45; RESP 14; TEMP 36.8; O2SAT 98
[2023-09-30] MEDS: cloNIDine HCl 0.1 MG Tablet PO (09:37)
[2023-09-30] MEDS: hydrOXYzine PAM 25 MG Capsule 50 MG PO ×2 (09:37→23:27)
[2023-09-30 09:38] VITALS: BP 120/62; PULSE 64; RESP 14; TEMP 36.6; O2SAT 100
--- NOTE | 2023-09-30 11:03 | PCM.PN.HOSP ---
Reason for Visit Reason for Visit: Opiate detox Subjective Subjective Patient states he is feeling okay at this time. Denies any acute needs. States the medication seems to be helping. Objective Data Objective Data Vital Signs: Vital Signs Temp Pulse Resp BP Pulse Ox O2 Del Method 97.8 F 64 14 120/62 100 Room Air 09/30/23 09:38 09/30/23 09:38 09/30/23 09:38 09/30/23 09:38 09/30/23 09:38 09/30/23 09:39 Oxygen Delivery Method Room Air Weight: 103.164 kg Body Mass Index (BMI) 30.8 Intake & Output: Intake and Output for Last 24 Hours 09/28/23 09/29/23 09/30/23 23:59 23:59 23:59 Intake Total 440 / 440 Balance 440 / 440 Lab / Micro Data 09/29/23 05:30 09/29/23 05:30 Physical Exam Const alert, oriented x3, no apparent distress and well nourished; Negative for average body habitus or healthy appearing Constitutional Narrative: Obese, -[place]ian, lying in bed in right side-lying, awake but minimally interactive, seems somewhat disinterested HEENT head/scalp atraumatic Head and Scalp: normocephalic Neuro oriented x3, moves all extremities and no focal motor deficits Speech: speech normal Psych Psych Narrative: Affect is flat, patient seems disinterested Assessment & Plan Assessment/Plan (1) Opiate dependence: (2) Opiate withdrawal: (3) Admitted to substance misuse detoxification center: (4) Homelessness: PLAN: Plan Acute opiate withdrawal with chronic opiate dependence -Has been using for about 2 years now -Never uses IV and typically snorts fentanyl -Continue buprenorphine taper -Supportive medications for withdrawal symptoms -180 consultation pending and anticipate patient being evaluated later today Polysubstance abuse -Patient also admits to cannabis and methamphetamine use -Recommend cessation -180 consultation pending Homelessness -Complicates the above -Case management/social work consultation for assistance -Discussed with drug abuse social worker Obesity -BMI 30.8 -complicates treatment, prognosis, outcomes DVT prophylaxis -Low risk -Encourage early and frequent ambulation CODE STATUS Full code Charges/Coding Visit Charges Inpatient E&M: 09161 Subs Hosp L1
[2023-09-30] MEDS: Methocarbamol 750 MG Tablet PO (14:41)
[2023-09-30] MEDS: Gabapentin 300 MG Capsule PO (14:41)
[2023-09-30 14:45] VITALS: BP 100/55; PULSE 69; RESP 14; TEMP 36.8; O2SAT 98
--- NOTE | 2023-09-30 17:36 | ADDICTION ---
Pt was met w/for [facility] assessment and to complete AUDIT, DUDIT, ASAM, [place] and DC Plan. Pt reports that he is homeless and worried about discharging from detox w/nowhere safe to go. Pt was referred for residential treatment at [facility]. Pt is agreeable to the plan for discharge to residential treatment. Due to the severity of pt's risk factors and ongoing sxs, Pt should admit directly from [facility] to [facility] on Tuesday10/03/23. Peer support to provide transport.
[2023-09-30 23:23] VITALS: BP 105/75; PULSE 54; RESP 16; TEMP 36.5; O2SAT 100
[2023-09-30] MEDS: traZODone 100 MG Tablet PO (23:27)
[2023-10-01 06:42] VITALS: BP 114/71; PULSE 46; RESP 18; TEMP 36.5; O2SAT 100
[2023-10-01 10:00] VITALS: PULSE 70; RESP 18; O2SAT 96
--- NOTE | 2023-10-01 11:23 | PCM.PN.HOSP ---
Reason for Visit Reason for Visit: Opiate withdrawal Subjective Subjective Patient not requiring any Subutex. Addiction plan is [facility] on [facility]. Patient denies any acute needs at this time. Objective Data Objective Data Vital Signs: Vital Signs Temp Pulse Resp BP Pulse Ox O2 Del Method 97.7 F L 70 18 114/71 96 Room Air 10/01/23 06:42 10/01/23 10:00 10/01/23 10:00 10/01/23 06:42 10/01/23 10:00 10/01/23 10:00 Oxygen Delivery Method Room Air Weight: 103.164 kg Body Mass Index (BMI) 30.8 Intake & Output: Intake and Output for Last 24 Hours 09/29/23 09/30/23 10/01/23 23:59 23:59 23:59 Intake Total 440 / 440 200 / 200 300 / 300 Balance 440 / 440 200 / 200 300 / 300 Lab / Micro Data 09/29/23 05:30 09/29/23 05:30 Physical Exam Const alert, oriented x3, no apparent distress, healthy appearing and well nourished; Negative for average body habitus Constitutional Narrative: Obese, -Haitian, lying in bed, watching TV, more interactive today, appears comfortable, nontoxic HEENT head/scalp atraumatic Head and Scalp: normocephalic Neuro oriented x3, moves all extremities and no focal motor deficits Speech: speech normal Psych affect normal Psych Narrative: More interactive today, eye contact is good, patient interacts appropriately Assessment & Plan Assessment/Plan (1) Opiate dependence: (2) Opiate withdrawal: (3) Admitted to substance misuse detoxification center: (4) Homelessness: PLAN: Plan Acute opiate withdrawal with chronic opiate dependence -Has been using for about 2 years now -Never uses IV and typically snorts fentanyl -Patient does not require buprenorphine -Continue supportive medications for withdrawal symptoms -180 has evaluated the patient and the plan is for [facility] on Tuesday Polysubstance abuse -Patient also admits to cannabis and methamphetamine use -Recommend cessation Homelessness -Complicates the above -Case management/social work consultation for assistance -Discussed with social worker health services--> [facility] Obesity -BMI 30.8 -complicates treatment, prognosis, outcomes DVT prophylaxis -Low risk -Encourage early and frequent ambulation CODE STATUS Full code Charges/Coding Visit Charges Inpatient E&M: 17291 Subs Hosp L1
[2023-10-01 12:00] VITALS: BP 115/65; PULSE 65; RESP 18; TEMP 36.6; O2SAT 100
[2023-10-01] MEDS: hydrOXYzine PAM 25 MG Capsule 50 MG PO ×2 (12:25→19:13)
[2023-10-01] MEDS: Acetaminophen 325 MG Tablet 650 MG PO ×2 (12:25→19:12)
[2023-10-01 16:30] VITALS: PULSE 70; RESP 18; O2SAT 99
[2023-10-01 18:00] VITALS: BP 109/68; PULSE 61; RESP 18; TEMP 36.6; O2SAT 99
[2023-10-01 20:27] VITALS: BP 117/80; PULSE 54; RESP 16; TEMP 36.6; O2SAT 97
[2023-10-02 04:18] VITALS: BP 117/76; PULSE 47; RESP 18; TEMP 36.6; O2SAT 98
[2023-10-02] MEDS: Dicyclomine 10 MG Capsule 20 MG PO (07:39)
[2023-10-02] MEDS: Ibuprofen 400 MG Tablet PO (07:39)
[2023-10-02] MEDS: Gabapentin 300 MG Capsule PO (07:39)
[2023-10-02] MEDS: cloNIDine HCl 0.1 MG Tablet PO (07:39)
[2023-10-02 10:00] VITALS: BP 105/63; PULSE 58; RESP 16; TEMP 37; O2SAT 100
--- NOTE | 2023-10-02 10:39 | PCM.PN.HOSP ---
Reason for Visit Reason for Visit: Opiate detox Subjective Subjective Denies any acute complaints at this time. Had some restlessness and anxiety overnight but has been medicated for this this morning. Plan is for discharge to longterm tomorrow morning and he is aware. Objective Data Objective Data Vital Signs: Vital Signs Temp Pulse Resp BP Pulse Ox O2 Del Method 98.6 F 58 L 16 105/63 100 Room Air 10/02/23 10:00 10/02/23 10:00 10/02/23 10:00 10/02/23 10:00 10/02/23 10:00 10/02/23 10:00 Oxygen Delivery Method Room Air Weight: 103.164 kg Body Mass Index (BMI) 30.8 Intake & Output: Intake and Output for Last 24 Hours 09/30/23 10/01/23 10/02/23 23:59 23:59 23:59 Intake Total 200 / 200 1400 / 1400 200 / 200 Balance 200 / 200 1400 / 1400 200 / 200 Lab / Micro Data 09/29/23 05:30 09/29/23 05:30 Physical Exam Const alert, oriented x3, no apparent distress, healthy appearing and well nourished; Negative for average body habitus Constitutional Narrative: Obese, -[place]ese, lying in bed, watching TV, appears comfortable, nontoxic HEENT head/scalp atraumatic Head and Scalp: normocephalic Neuro moves all extremities and no focal motor deficits Speech: speech normal Psych affect normal Psych Narrative: Pleasant, eye contact is good, patient interacts appropriately Assessment & Plan Assessment/Plan (1) Opiate dependence: (2) Opiate withdrawal: (3) Admitted to substance misuse detoxification center: (4) Homelessness: PLAN: Plan Acute opiate withdrawal with chronic opiate dependence -Has been using for about 2 years now -Never uses IV and typically snorts fentanyl -Patient does not require buprenorphine -Continue supportive medications for withdrawal symptoms -180 has evaluated the patient and the plan is for discharge [facility] on Tuesday Polysubstance abuse -Patient also admits to cannabis and methamphetamine use -Recommend cessation Homelessness -Complicates the above -Case management/social work consultation for assistance -Discussed with social services coordinator--> [facility] Obesity -BMI 30.8 -complicates treatment, prognosis, outcomes DVT prophylaxis -Low risk -Encourage early and frequent ambulation CODE STATUS Full code Disposition: -Plan is for discharge on 10/03/2023 to [facility] for [facility]. Charges/Coding Visit Charges Inpatient E&M: 68194 Subs Hosp L1
--- NOTE | 2023-10-02 13:00 | ADDICTION ---
Pt was met with to discuss his discharge plan and pt was informed that his admission to [facility] residential is contingent upon approval from [facility] medical collections specialist on Tuesday10/03/23. Admission hat steamer Juana Rahman will contact [facility] on Tuesday to screen pt and confirm d/c plan.
[2023-10-02 15:50] VITALS: BP 108/58; PULSE 56; RESP 15; TEMP 36.9; O2SAT 100
--- NOTE | 2023-10-02 17:50 | NURSING ---
pt leaving AMA
--- NOTE | 2023-10-02 19:38 | PCM.HOSP.N ---
Hospitalist Note Pt Left AMA.
--- NOTE | 2023-10-02 19:38 | PN.HOSP_ITS ---
Hospitalist Note Pt Left AMA.
== END 2023-10-02 18:02 | disposition left against medical advice (07) | DRG 770 ==
LOC: ED 05:43 → MS3 11:03
PROVIDERS: Admitting Provider Internal Medicine; Emergency Provider Emergency Medicine; Visit Provider Internal Medicine
DX: F11.23 Opioid dependence with withdrawal (principal); E66.9 Obesity, unspecified; F12.90 Cannabis use, unspecified, uncomplicated; F15.90 Other stimulant use, unspecified, uncomplicated; Z59.00 Homelessness unspecified; Z68.31 Body mass index [BMI] 31.0-31.9, adult; Z53.29 Procedure and treatment not carried out because of patient's decision for other reasons
CPT/HCPCS: 80053; 80307; 82077; 85025; 99284